=== PATIENT | male | born 1995 | race Hispanic/Latino ===

== ENCOUNTER 2019-05-28 11:02 | Emergency (ER) | payer OTHER ==
[~2019-05-28] VITALS: Ht 175.3 cm; Wt 96.1 kg
[~2019-05-28 11:02] MED LIST: HYCE0.1S PO; LIDO2SO SSP; TYLE325T5 PO
[2019-05-28] MEDS ORDERED: BENA25CA4 PO ×2 (11:09)
[2019-05-28] MEDS ORDERED: CLIN150C14 PO (11:09)
[2019-05-28] MEDS ORDERED: FAMOTIDINE IV BAG 20 MG in IV 1 EA IV ONE (11:30)
[2019-05-28] MEDS ORDERED: methylPREDNISolone INJ 125 MG/2 ML VIAL (J2930) IV ONE (11:30)
[2019-05-28] MEDS ORDERED: NS 1,000 ML IV ONE (11:30)
[2019-05-28] MEDS ORDERED: ISOVUE-370 76% 100ML VIAL (Q9967) As Ordered ONE (11:41)
[2019-05-28 12:04] LABS: BASO % 0.3 % (0.0-1.0); EOS % 0.2 % (0.0-3.0); HEMATOCRIT 46.9 % (42.0-52.0); HEMOGLOBIN 15.6 g/dl (13.5-17.5); LYMPH # 1.5 10^3/uL (1.5-5.0); LYMPH % 15.4 % (24.0-44.0); MEAN CORPUSCULAR HEMOGLOBIN 27.7 pg (27.0-33.0); MEAN CORPUSCULAR HGB CONC 33.3 g/dl (32.0-36.5); MEAN CORPUSCULAR VOLUME 83.3 fl (80.0-96.0); MONO # 0.7 10^3/uL (0.0-0.8); MONO % 7.7 % (0.0-5.0); NEUTROPHILS # 7.2 10^3/uL (1.5-8.5); NEUTROPHILS % 75.8 % (36.0-66.0); PLATELET COUNT, AUTOMATED 267 10^3/uL (150-450); RED BLOOD COUNT 5.63 10^6/uL (4.30-6.10); WHITE BLOOD COUNT 9.6 10^3/uL (4.0-10.0)
[2019-05-28 12:22] LABS: ERYTHROCYTE SEDIMENTATION RATE 3 mm/hr (0-15)
--- NOTE | 2019-05-28 12:53 | REP ---
Clinical: Left facial swelling. Technique: Axial contrast enhanced images through the maxillofacial region with coronal and sagittal re-formations using 75 ml Isovue 370 intravenous contrast material. Findings: Left-sided facial soft tissue swelling and subcutaneous inflammatory stranding extends from the periorbital region to the level of the mandible along with mild reactive adenopathy including lymph nodes measuring up to approximately 11.5 mm short axis diameter. No evidence for abscess or mass lesion. The osseous structures are intact. The bilateral orbits and intraconal contents are symmetric and normal. The sinuses and mastoid air cells are clear. The nasopharyngeal through hypopharyngeal soft tissue is essentially normal and the airway appears patent and midline without evidence for mass effect. Impression: 1. Soft tissue swelling and subcutaneous infiltration likely representing cellulitis. No evidence for abscess or mass lesion appreciated. Reactive cervical adenopathy with lymph nodes up to 11.5 mm noted. Electronically Signed by Mark Osorio MD 05/28/2019 12:45 P
[2019-05-28] MEDS ORDERED: DALBAVANCIN 1,500 MG in D5W 250 ML IV ONE (15:00)
[2019-05-28 16:08] VITALS: BP 142/78
== END 2019-05-28 16:27 | disposition home or self-care (01) ==
LOC: M ED 11:02
DX: L03.211 Cellulitis of face (principal)
CPT/HCPCS: 70487; 80047; 85025; 85652; 86140; 96365; 96367; 96375; 99284; J0875; J2930; Q9967